=== PATIENT | male | born 1955 | race African-American/Black ===

== ENCOUNTER 2017-04-12 19:03 | Emergency (ER) | payer MEDICAID ==
[~2017-04-12] VITALS: Ht 172.7 cm; Wt 99.8 kg
[2017-04-12 19:35] VITALS: BP 168/93
[2017-04-12] MEDS ORDERED: Indomethacin 75 MG CAPSULE.ER ORAL SCH (21:00)
--- NOTE | 2017-04-12 21:16 | Emergency Room Report ---
History of Present Illness General Chief Complaint: Upper Extremity Injury Source: Patient Present Illness HPI 61-year-old male presents to the emergency department complaining of 10 out of 10 in severity left elbow pain x4 days. Patient denies trauma or fall he reports severe tenderness upon palpation patient denies erythema, increased temperature palpation or fevers. Patient reports history of multiple gout attacks in the past. Patient denies taking limited medications for gout. he also reports intermittent paresthesias in the end of the affected extremity. He also reports localized pain at the base of the right great toe x8 months. Patient states that it affects his ability to walk due to pain pain is exacerbated upon weightbearing or walking. denies recent wound near the left elbow. Patient states his pain is 8/10 in severity at the base of the right. Denies swelling, erythema or increased temperature palpation in that area. Denies numbness tingling or loss of sensation or gross motor movements of the extremities, incontinence of bowel or bladder. Denies CP, Palpitations, LOC, AMS , dizziness, Changes in Vision, Sensation, paresthesias, or a sudden severe headache. Allergies: Coded Allergies: No Known Allergies (Unverified , 04/12/17) Patient History Past Medical History: see triage record Past Surgical History: none Pertinent Family History: none Reviewed Nursing Documentation: PMH: Agreed, PSxH: Agreed Review of Systems All Other Systems: negative except mentioned in HPI Physical Exam Vital Signs Date Time Temp Pulse Resp B/P (MAP) Pulse Ox O2 Delivery O2 Flow Rate FiO2 04/12/17 19:16 98.2 72 18 168/93 98 Room Air Sp02 EP Interpretation: reviewed, normal General Appearance: no apparent distress, alert, GCS 15, non-toxic Head: normocephalic, atraumatic Eyes: bilateral eye normal inspection, bilateral eye PERRL ENT: hearing grossly normal, normal voice Neck: full range of motion Respiratory: chest non-tender, lungs clear, normal breath sounds, speaking full sentences Cardiovascular #1: regular rate, rhythm, normal capillary refill Gastrointestinal: normal bowel sounds, non tender, soft Rectal: deferred Genitourinary: normal inspection Musculoskeletal: back normal, gait/station normal - pt compensating, normal range of motion, tender - TTP to the left posterior elbow, mild swelling, no erythema, no increased temperature to palpation, FROM with pain. localized TTP to the plantar aspect of the base of the right 1st metacarpal. no erythema, no swelling, no obvious deformity. Neurologic: alert, oriented x3, responsive, motor strength/tone normal, sensory intact, speech normal, grossly normal Psychiatric: judgement/insight normal Skin: normal color, no rash, warm/dry, well hydrated, other - no open wounds or scabs, no bruises or erythema Lymphatic: no adenopathy Medical Decision Making PA Attestation Dr. salvador is my supervising Physician whom patient management has been discussed with. Diagnostic Impression: Primary Impression: Elbow pain, left Additional Impressions: Foot pain, right History of gout ER Course 61-year-old male presents to the emergency department complaining of 10 out of 10 in severity left elbow pain x4 days. Patient denies trauma or fall he reports severe tenderness upon palpation patient denies erythema, increased temperature palpation or fevers. Patient reports history of multiple gout attacks in the past. Patient denies taking limited medications for gout. he also reports intermittent paresthesias in the end of the affected extremity. He also reports localized pain at the base of the right great toe x8 months. Patient states that it affects his ability to walk due to pain pain is exacerbated upon weightbearing or walking. denies recent wound near the left elbow. Patient states his pain is 8/10 in severity at the base of the right. Denies swelling, erythema or increased temperature palpation in that area. Denies numbness tingling or loss of sensation or gross motor movements of the extremities, incontinence of bowel or bladder. Denies CP, Palpitations, LOC, AMS , dizziness, Changes in Vision, Sensation, paresthesias, or a sudden severe headache. Ddx considered but are not limited to cellulitis, Septic joint, pseudogout fracture, d/L, gout Vital signs: are WNL, pt. is afebrile H&PE are most consistent with recurrent gout attack.- No physical exam evidence to suggest infection no erythema, no increased temperature palpation. only mild swelling noted ORDERS: -X-ray of the left elbow-- is unremarkable for acute fractures or soft tissue injury., Evidence of cutaneous gas. -X-ray of the right foot shows degenerative changes and see of the first metacarpal, Otherwise no acute fractures or soft tissue injury. ED INTERVENTIONS: -1.2 Colchicine -75mg Indomethacin DISCHARGE: At this time pt. is stable for d/c to home. Will provide printed patient care instructions, and any necessary prescriptions. Care plan and follow up instructions have been discussed with the patient prior to discharge. Other X-Ray Diagnostic Results Other X-Ray Diagnostic Results #1: # of Views/Limited Vs Complete: 3 View Indication: Pain EP Interpretation: Yes PA Xray: Interpretation reviewed, by supervising MD, and agrees with findings. Interpretation: no dislocation, no soft tissue swelling, no fractures Impression: No acute disease - unremarkable for acute fractures or soft tissue injury., Evidence of cutaneous gas. Electronically Signed by: Linda Sanz PA-C Other X-Ray Diagnostic Results #2: # of Views/Limited Vs Complete: 3 View Indication: Pain EP Interpretation: Yes PA Xray: Interpretation reviewed, by supervising MD, and agrees with findings. Interpretation: no dislocation, no soft tissue swelling, no fractures Impression: No acute disease - degenerative changes and see of the first metacarpal, Otherwise no acute fractures or soft tissue injury. Electronically Signed by: Linda Sanz PA-C Last Vital Signs Date Time Temp Pulse Resp B/P (MAP) Pulse Ox O2 Delivery O2 Flow Rate FiO2 04/12/17 19:16 98.2 72 18 168/93 98 Room Air Disposition: HOME, SELF-CARE Condition: Stable Scripts Colchicine (Colchicine) 0.6 Mg Capsule 0.6 MG PO ONCE, #1 CAP Prov: Linda Sanz 04/12/17 Indomethacin (INDOMETHACIN) 50 Mg Capsule 50 MG PO TID, #10 CAP Prov: Linda Sanz 04/12/17 Referrals: [facility],REFERRING (PCP) Patient Instructions: Gout, Joint Pain, [id number] Additional Instructions: Take medications as directed. Follow up with a Primary Care Provider in 3-5 days, even if your symptoms have resolved. --Please review list of primary care clinics, if you do not already have a primary care provider Return sooner to ED if new symptoms occur, or current symptoms become worse. - Please note that this Emergency Department Report was dictated using [employer] technology software, occasionally this can lead to erroneous entry secondary to interpretation by the dictation equipment. Linda Sanz Apr 12, 2017 21:15
[2017-04-12] MEDS ORDERED: INDOMETHACIN50 MG PO (21:20)
[2017-04-12] MEDS ORDERED: COLCHICINE0.6 M1 PO (21:20)
[2017-04-12 21:30] VITALS: BP 167/86
[2017-04-12 21:34] VITALS: BP 167/86
--- NOTE | 2017-04-13 12:58 | Diagnostic Imaging Report ---
Indication: Pain Technique: XRAY Foot Complete R Comparison: Bilateral foot radiographs 06/23/2008 Findings: There is no acute fracture or dislocation. There is minimal hallux valgus and subchondral sclerosis at the first metatarsal phalangeal joint. There is some mild soft tissue prominence in this area. There is no focal osteopenia, periostitis or bony erosion. No radiopaque foreign body seen. Impression: No acute fracture or dislocation. Minimal hallux valgus with mild degenerative changes the first metatarsophalangeal joint with adjacent soft tissue prominence. No definite bony erosions.
--- NOTE | 2017-04-13 12:59 | Diagnostic Imaging Report ---
Indication: Pain for 3 days Technique: XRAY Elbow Min 3v L Comparison: None Findings: There is no acute fracture or dislocation. No elbow joint effusion is appreciated. No radiopaque foreign body is seen. Impression: No evidence of acute fracture or dislocation. No appreciable elbow joint effusion.
== END 2017-04-12 21:34 | disposition home or self-care (01) ==
LOC: EMR 20:11
DX: M25.522 Pain in left elbow (principal); M79.671 Pain in right foot; M20.11 Hallux valgus (acquired), right foot
CPT/HCPCS: 99284

== ENCOUNTER 2018-11-22 17:53 | Emergency (ER) | payer MEDICARE, MEDICAID ==
[~2018-11-22] VITALS: Ht 167.6 cm; Wt 86.2 kg
[~2018-11-22 17:53] MED LIST: COLCHICINE0.6 M1 PO; INDOMETHACIN50 MG PO
--- NOTE | 2018-11-22 18:05 | NUR ---
ED Nurse Note: Patient walked into ED due to dog bite that happened today on the left lower leg. patient reports it was from unknown [facility]. patient is alert awake x4 ambulatory steady gait, breathing unlabored and even.
[2018-11-22] MEDS ORDERED: Neosporin Oint Ud Pkt TOPIC ONE (18:15)
[2018-11-22] MEDS ORDERED: Tetanus/Diptheria/Pertussis IM ONE (18:15)
--- NOTE | 2018-11-22 18:25 | Emergency Room Report ---
History of Present Illness General Chief Complaint: Animal Bite Source: Patient (Linda Sanz) Present Illness HPI 63-year-old male presents to the emergency department complaining of acute onset dog bite to the left lower extremity earlier today. Patient reports it did break skin and there was some bleeding however there is no bleeding at this time. Patient is not up-to-date with his tetanus vaccination. Patient reports it was someone's pet while they were walking it asked him it bit him. Denies taking blood thinning medications. No other aggravating or relieving factors at this time he reports some mild tenderness that he rates as 4 out of 10 severity. (Linda Sanz) Allergies: Coded Allergies: No Known Allergies (Unverified , 04/12/17) Patient History Past Medical History: see triage record Past Surgical History: none Pertinent Family History: none Reviewed Nursing Documentation: PMH: Agreed; PSxH: Agreed (Linda Sanz) Nursing Documentation-PMH Past Medical History: No History, Except For (Linda Sanz) Review of Systems All Other Systems: negative except mentioned in HPI (Linda Sanz) Physical Exam Vital Signs Date Time Temp Pulse Resp B/P (MAP) Pulse Ox O2 Delivery O2 Flow Rate FiO2 11/22/18 17:59 98.1 66 17 122/69 (86) 99 Room Air Sp02 EP Interpretation: reviewed, normal General Appearance: no apparent distress, alert, GCS 15, non-toxic Head: normocephalic, atraumatic Eyes: bilateral eye normal inspection, bilateral eye PERRL ENT: hearing grossly normal, normal voice Neck: full range of motion Respiratory: chest non-tender, lungs clear, normal breath sounds, speaking full sentences Cardiovascular #1: regular rate, rhythm, no edema, normal capillary refill Musculoskeletal: back normal, gait/station normal - with blind/stick assistance , normal range of motion, non-tender Neurologic: alert, oriented x3, responsive, motor strength/tone normal, sensory intact, speech normal, grossly normal Psychiatric: judgement/insight normal Skin: other - superficial dog bite less than 1cm to the anterior left lower extremity. It is not bleeding. (Linda Sanz) Medical Decision Making PA Attestation Dr. James is my supervising Physician whom patient management has been discussed with. (Linda Sanz) Medicare Attestation The history of Felipe Camargo has been reviewed and management options for him have been examined and discussed by Kun James. I have personally examined and interviewed the patient. (Kun James MD) Diagnostic Impression: Primary Impression: Dog bite of left lower leg Qualified Codes: S81.852A - Open bite, left lower leg, initial encounter; W54.0XXA - Bitten by dog, initial encounter ER Course 63-year-old male presents to the emergency department complaining of acute onset dog bite to the left lower extremity earlier today. Patient reports it did break skin and there was some bleeding however there is no bleeding at this time. Patient is not up-to-date with his tetanus vaccination. Patient reports it was someone's pet while they were walking it asked him it bit him. Denies taking blood thinning medications. No other aggravating or relieving factors at this time he reports some mild tenderness that he rates as 4 out of 10 severity. Ddx considered but are not limited to Cellulitis, rabies, fracture, neurovascular compromise of extremity. Vital signs: are WNL, pt. is afebrile H&PE are most consistent with superficial dog bite to the anterior left lower extremity. It is not bleeding. ORDERS: none required at this time, the diagnosis is clinical ED INTERVENTIONS: -Copious pressure irrigation - Tetanus vaccination is administered. Animal bite report -completed by PECAN GROWER: At this time pt. is stable for d/c to home. Will provide printed patient care instructions, and any necessary prescriptions. Care plan and follow up instructions have been discussed with the patient prior to discharge. * Augmentin TID x 7 days. (Linda Sanz) Last Vital Signs Date Time Temp Pulse Resp B/P (MAP) Pulse Ox O2 Delivery O2 Flow Rate FiO2 11/22/18 17:59 98.1 66 17 122/69 (86) 99 Room Air (Linda Sanz) Disposition: HOME, SELF-CARE Condition: Stable Scripts Amoxicillin/Potassium Clav 875-125* (AUGMENTIN 875-125 TABLET*) 1 Each Tablet 1 TAB ORAL TWICE A DAY for 7 Days, #14 TAB Prov: Linda Sanz 11/22/18 Patient Instructions: Animal Bite Additional Instructions: Take medications as directed. Follow up with a Primary Care Provider in 3-5 days, even if your symptoms have resolved. --Please review list of primary care clinics, if you do not already have a primary care provider Return sooner to ED if new symptoms occur, or current symptoms become worse. - Please note that this Emergency Department Report was dictated using [employer] life technology software, occasionally this can lead to erroneous entry secondary to interpretation by the dictation equipment. Linda Sanz Nov 22, 2018 18:25 Kun James MD Nov 23, 2018 09:52
[2018-11-22] MEDS ORDERED: AUGMENTIN 875-1 EAC1 ORAL (18:26)
[2018-11-22 18:42] VITALS: BP 122/69
--- NOTE | 2018-11-22 18:45 | NUR ---
ER DISCHARGE NOTE: Patient is cleared to be discharged per JEREMY CUMMINGS , pt is aox4, on room air, with stable vital signs. pt was given dc and prescription instructions, pt was able to verbalize understanding, pt id band removed without complications. pt is able to ambulate with steady gait. dressing applied as ordered. pt took all belongings. rabies for faxed as protocol
== END 2018-11-22 18:42 | disposition home or self-care (01) ==
LOC: EMR 18:32
DX: S81.852A Open bite, left lower leg, initial encounter (principal); Z23 Encounter for immunization; W54.0XXA Bitten by dog, initial encounter; Y92.9 Unspecified place or not applicable
CPT/HCPCS: 90471; 90715; 99283